=== PATIENT | male | born 1945 | race Caucasian/White ===

== ENCOUNTER 2016-10-03 05:23 | Inpatient (IN) | payer OTHER ==
[~2016-10-03] VITALS: Ht 177.8 cm; Wt 124.8 kg
[~2016-10-03 05:23] MED LIST: BYSTOLIC20 MG PO; COENZYME Q10100 M1 PO; CRESTOR20 MG PO; DOXAZOSIN MESYLA4 MG PO; ELIQUIS5 MG PO; FERROUS SULFAT325 MG PO; FIBER THERAPY0.52 GM PO; FISH OIL 1,0001 EAC7 PO; VALSARTAN-HCTZ1 EAC3 PO
[2016-10-03 05:59] VITALS: BP 153/98
[2016-10-03 09:58] LABS: HEMATOCRIT 40.5 % (38.0-50.0); MCH 31.2 PG (29.0-34.0); MCHC 35.1 G/DL (30.0-36.0); MEAN PLAT.VOLUME 10.5 uM^3 (9.0-12.4); PLATELET COUNT 110 K/uL (156-360); RBC DIS.WIDTH-CV 13.6 % (11.8-14.6); RBC DIS.WIDTH-SD 43.7 % (39-53); RED BLOOD COUNT 4.55 M/uL (4.00-5.50)
[2016-10-03 11:34] VITALS: BP 132/90
[2016-10-03 14:24] VITALS: BP 137/78
[2016-10-03 16:33] VITALS: BP 155/107
[2016-10-03 19:52] VITALS: BP 156/64
[2016-10-03 23:26] VITALS: BP 155/79
[2016-10-04 03:27] VITALS: BP 116/83
[2016-10-04 05:55] LABS: HEMATOCRIT 35.7 % (38.0-50.0); MCV 87.3 FL (86-99)
[2016-10-04 06:22] LABS: ANION GAP 9 MEQ/L (2-14); CHLORIDE 103 MEQ/L (99-109); GFR ESTIMATE (CALCULATED) > 59 mL/min/; GLUCOSE 145 mg/dL (70-99); SAMPLE HEMOLYSIS CHECK 0; SAMPLE ICTERIC CHECK 0; SAMPLE LIPEMIA CHECK 0; SODIUM 136 MEQ/L (136-147); UREA NITROGEN (BUN) 12 mg/dL (9-23)
[2016-10-04 08:11] VITALS: BP 136/78
[2016-10-04 12:01] VITALS: BP 99/64
[2016-10-04 14:44] LABS: ANION GAP 6 MEQ/L (2-14); CHLORIDE 101 MEQ/L (99-109); GFR ESTIMATE (CALCULATED) > 59 mL/min/; GLUCOSE 140 mg/dL (70-99); POTASSIUM 3.4 MEQ/L (3.7-5.4); SAMPLE HEMOLYSIS CHECK 0; SAMPLE ICTERIC CHECK 0; SAMPLE LIPEMIA CHECK 0; SODIUM 135 MEQ/L (136-147); UREA NITROGEN (BUN) 13 mg/dL (9-23)
[2016-10-04 16:05] VITALS: BP 166/82
[2016-10-04 19:14] VITALS: BP 131/69
[2016-10-05 00:09] VITALS: BP 135/78
[2016-10-05 03:51] VITALS: BP 106/61
[2016-10-05 06:31] LABS: HEMATOCRIT 33.9 % (38.0-50.0); MCV 88.5 FL (86-99)
[2016-10-05 06:46] LABS: ANION GAP 8 MEQ/L (2-14); CHLORIDE 103 MEQ/L (99-109); GFR ESTIMATE (CALCULATED) > 59 mL/min/; GLUCOSE 115 mg/dL (70-99); POTASSIUM 3.3 MEQ/L (3.7-5.4); SAMPLE HEMOLYSIS CHECK 0; SAMPLE ICTERIC CHECK 0; SAMPLE LIPEMIA CHECK 0; SODIUM 136 MEQ/L (136-147); UREA NITROGEN (BUN) 13 mg/dL (9-23)
[2016-10-05 08:14] VITALS: BP 116/75
[2016-10-05] MEDS ORDERED: LOVENOX40 MG/0.4 SC (08:37)
[2016-10-05] MEDS ORDERED: CELECOXIB200 MG PO (08:38)
[2016-10-05] MEDS ORDERED: HYDROCODON-ACE1 EAC7 PO (08:38)
[2016-10-05] MEDS ORDERED: K-DUR20 MEQ PO (08:47)
[2016-10-05 12:09] VITALS: BP 135/83
== END 2016-10-05 15:00 | DRG 470 ==
LOC: 2SOUTH 05:23 → 3WEST 11:20 → 2SOUTH 12:35 → 3WEST 10-05 15:00
PROVIDERS: Orthopaedic Surgery; Physician Assistant
PROC: 0SRC0J9 Replacement of Right Knee Joint with Synthetic Substitute, Cemented, Open Approach (ICD-10-PCS; principal; 2016-10-03)
PROC: 5A09357 Assistance with Respiratory Ventilation, Less than 24 Consecutive Hours, Continuous Positive Airway Pressure (ICD-10-PCS; 2016-10-04)
DX: M17.11 Unilateral primary osteoarthritis, right knee (principal); M21.161 Varus deformity, not elsewhere classified, right knee; E87.6 Hypokalemia; G47.33 Obstructive sleep apnea (adult) (pediatric); I48.0 Paroxysmal atrial fibrillation; E78.2 Mixed hyperlipidemia; I11.9 Hypertensive heart disease without heart failure; I25.10 Atherosclerotic heart disease of native coronary artery without angina pectoris; E66.9 Obesity, unspecified; Z68.39 Body mass index [BMI] 39.0-39.9, adult; Z85.828 Personal history of other malignant neoplasm of skin; Z79.01 Long term (current) use of anticoagulants; Z87.891 Personal history of nicotine dependence
CPT/HCPCS: 73560; 80048; 80048 91; 85014; 85018; 85027; 94660; 94799; J0131; J0690; J1170; J1650; J2175; J2250; J7050